=== PATIENT | male | born 1965 | race Caucasian/White ===

== ENCOUNTER 2020-09-05 10:41 | Inpatient (IN) | payer SELFPAY ==
[2020-09-05] VITALS (16 sets, daily range): BP systolic 127–154; BP diastolic 83–98; PULSE 61–92; RESP 13–18; TEMP 36.4–37.3; O2SAT 94–100; BMI 25.3
[2020-09-05] MEDS: SODIUM CHLORIDE 0.9% IV 1,000 ML 125 ML IV CONT (10:50)
--- NOTE | 2020-09-05 10:52 | ECG_ITS ---
Measurements Intervals [place] Rate: 76 P: 62 LA: 214 QRS: 31 QRSD: 77 T: 61 QT: 380 QTc: 428 Interpretive Statements SINUS RHYTHM WITH MARKED SINUS ARRHYTHMIA WITH FIRST DEGREE AV BLOCK ST ELEVATION IN SEPTAL LEADS- CONSIDER ACUTE INJURY PEAKED T WAVES- CONSIDER ISCHEMIA OR HYPERKALEMIA BASELINE ARTIFACT- I, II, III, AVR, AVL, AVF, V1-V3 ABNORMAL ECG Electronically Signed On 09-05-2020 12:25:59 CDT by David Abdi D.O.
--- NOTE | 2020-09-05 10:55 | PM.IMHP ---
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 911 was called to the scene his Coworkers. ECG in the field showed obvious acute anterior wall myocardial infarction. He is brought to the emergency room and then directly to the chemical laboratory scientist for emergency angiography in this setting. He describes no previous history of exertional chest pain symptomatology and no previous history of significant medical problems. Review of Systems Review of Systems: ROS unobtainable: Yes unobtainable due to medical condition Exam Const: General: in distress and uncomfortable Other: Well-developed well-nourished white male was a diaphoretic obviously in severe distress with chest pain HENMT: Mouth: Yes moist mucous membranes Eyes: Sclera: sclerae normal Pupils: Equal, round and reactive pupils present Neck: Neck: supple and no JVD Resp: Auscultation: clear to auscultation bilaterally Other: bibasilar pulmonary crackles Cardio: Rate: regular rate Rhythm: regular rhythm Other: no murmur S4 is evident PMI nondisplaced GI: GI Palp: Yes Soft to palpation Auscultation: normal bowel sounds Skin: General skin exam: normal color Neuro: Cognition (Neuro): normal cognition Extrem: General: normal to inspection Assessment and Plan Additional Plan 55-year-old man without previous cardiac history presents with chest pain and brought straight to the chemical laboratory scientist with obvious acute anterior wall infarction by ECG. Plans are for emergency angiography and revascularization. Heriberto Sullivan MD [facility]
--- NOTE | 2020-09-05 10:58 | WPDCARDPROC ---
Cardiac Cath Procedure Note Date of procedure:: 09/05/20 Performing physician:: Heriberto Sullivan MD Indication:: acute anterior wall myocardial infarction Brief clinical history:: this is a 55-year-old man without prior cardiac history presenting with chest pain and ECG evidence of acute anterior wall [place] Procedure Procedure performed:: emergency coronary angiography PCI (JULISSA) to the left anterior descending left ventriculography Sedation/Medication given:: no sedation Access site:: right femoral artery Estimated blood loss:: 15-20 cc Procedure note:: patient was brought to cardiac catheterization lab in the emergent setting as described above. The patient was in significant distress with chest pain and diaphoresis. The right femoral triangle was prepared in the usual fashion. Anesthesia was given with 1% lidocaine infiltrated locally. Using the modified Seldinger technique the femoral artery was punctured and a 6 Senegalese vascular sheath was placed. I then used a 6 [place]e CLS 3.5 guiding catheter to engage inject the left coronary artery for angiography. PCI was then recommended of the proximal LAD and carried out as detailed below. Prior to PCI the patient was systemically anticoagulated with bolus and infusion of Angiomax. He received 325 mg of aspirin and 180 mg of oral Brilinta. He was given aspirin in the emergency department but we elected to repeated as he vomited in the labor economist. Following PCI of the LAD as described above the patient had the right coronary injected using a 5 [place]e no torque right coronary catheter. I then used a 5 [place]e angled pigtail catheter to document left-sided hemodynamics and inject the left ventriculogram in the ROY projection. After this the sheath was sutured into position the patient was taken to the ICU for post NY/PCI recovery. He did not have any procedural complications and left the labor economist with no evidence of a groin hematoma. Findings:: Hemodynamics: Central aortic pressure was 122/80 left ventricle 122/10 end-diastolic pressure of 28. There was no systolic gradient on pullback across the aortic valve. Left ventricle: The LV is of normal size the anterior wall is akinetic the remainder of the LV contracts well the global ejection fraction appears to be about 35% with akinesis of the entire anterior wall. The left main coronary artery is nicely patent the left anterior descending appears to be a moderate caliber artery it is 100% occluded proximally with no antegrade flow. Circumflex is a large caliber vessel appears to be dominant to the posterior circulation. The proximal circumflex and the OM branches are free of significant disease. The left PDA has about 70-80% stenosis in the midportion. Right coronary artery is small in caliber non dominant and gives rise to a series of RV branches. The midportion of this small nondominant vessel has a focal 90% stenosis. Intervention: The LAD was was crossed using a 0.014 BMW guidewire which was advanced into the distal LAD. The target lesion was pre-dilated using a 3 x 15 mm emerge PTCA balloon. This restored [place] 3 flow in the LAD. Area of disease was moderate in length. I elected to deploy a 3.5 x 26 mm Orsiro drug-eluting stent at the site of the original occlusion which provided excellent angiographic appearance of the target lesion. Unfortunately the also resulted in the appearance of edge dissections both disc distally and proximally to stented area. I then deployed a 3.5 x 13 mm device of the same type overlapping the original stent covering the distal edge dissection and then a 3.5 x 15 mm device of the same type proximal to the stent and back to the ostium of the LAD. The original device was deployed at 10 atmospheres the the distal stent was deployed at 8 atmospheres in the proximal stent at 10 atmospheres giving that a 3.74 mm size. At the end of this the LAD we had an excellent angiographic appearance with no residual
--- NOTE | 2020-09-05 11:19 | WPDCNINT ---
Assessment and Plan Assessment and plan (1) ST elevation (STEMI) myocardial infarction involving left anterior descending coronary artery: Code(s): I21.02 - ST elevation (STEMI) myocardial infarction involving left anterior descending coronary artery Status: Acute Assessment and Plan: Patient presented with chest pain with diaphoresis, nausea, shortness of breath, still [place] was declared in the field and patient was taken straight to the cardiac catheterization -found to have occlusion the LAD, status post JULISSA x1 patient did developed edge dissections both proximal and distal to the original stent and 2 additional stents were inserted at the site of the dissections. EF according the science specialist was about 35% -patient has been started on aspirin, lisinopril, metoprolol, rosuvastatin, Brilinta (2) Cardiomyopathy: Code(s): I42.9 - Cardiomyopathy, unspecified Status: Acute Assessment and Plan: Cardiomyopathy with EF of 35% likely due to start heart secondary to STEMI -will obtain a echocardiogram in the morning -continue medications per Cardiology Additional Plan Discussed with patient updated with his condition and plan of care. I answered all questions. He is aware that he has to lay flat in bed time that she comes out and thereafter also. He seems to be very cooperative Code status: Full code Critical care time spent: 45 minutes This dictation may have been done utilizing a voice recognition system. Attempts have been made to correct errors. However, there may be uncorrected grammatical, spelling, and recognition errors present. Due to a high probability of clinically significant, life threatening deterioration, the patient required my highest level of preparedness to intervene emergently and I personally spent this critical care time directly and personally managing the patient. This critical care time included obtaining a history; examining the patient; pulse oximetry; ordering and review of studies; arranging urgent treatment with development of a management plan; evaluation of patient's response to treatment; frequent reassessment; and discussions with other providers. It was exclusive of separately billable procedures and treating other patients and teaching time. Please see Assessment and Plan section and the rest of the note for further information on patient assessment and treatment Animal Husbandman Consult Note Consult date: 09/05/20 Time Seen: 11:21 Reason for consult: ST-elevation [place] status post PTCA/PCI the LAD. EF of 35% HPI: Addi Blas is a 55 year old male with no past medical history or previous cardiac problems have experienced severe chest pain with diaphoresis this morning, EMS was called an EKG showed acute anterior wall NM, patient was brought to the ED and then directly taken to the shop laborer for emergency angiogram. Patient status post PTCA/PCI with JULISSA x1 to the LAD occlusion. Dissection is developed both proximally and distally the origin stent which required additional deployment of stents proximal and distal to the original stent. EF per Cardiology was about 35% which she thought is secondary to a stunned heart . Patient was transferred to the ICU for further management Patient seen and examined the ICU upon arrival, laying flat in bed, awake, alert, pleasant personality. Patient denies any medical history. He does not take any medications at home. Denies an, tobacco use or illicit drug use. States he drinks alcohol occasionally. Patient complains of mild chest discomfort on the left upper chest. Denies any diaphoresis, radiation the nausea, vomiting, abdominal pain. Denies any shortness of breath at this time. Patient is hemodynamically stable. 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
[2020-09-05 11:21] LABS: Hematocrit 47.1 % (42.0-52.0); Hemoglobin 16.3 g/dL (14.0-18.0); Mean Corpuscular HGB Conc 34.6 g/dl (32-36); Mean Corpuscular Hemoglobin 31.2 pg (26-34); Mean Corpuscular Volume 90.2 fl (80-100); Mean Platelet Volume 9.1 fl (7.4-10.4); Platelet Count Result 210 k/mm3 (150-375); Red Blood Count 5.22 M/mm3 (4.6-6.20); Red Cell Distribution Width 12.5 % (11.5-14.5); White Blood Count 13.8 K/mm3 (4.5-10.0)
[2020-09-05 11:33] LABS: Anion Gap 10 mmol/L (8-16); Blood Urea Nitrogen 18 mg/dL (9-20); Calcium 8.7 mg/dL (8.4-10.2); Carbon Dioxide 21 mmol/L (22-30); Chloride 103 mmol/L (98-107); Cholesterol 258 mg/dL (0-200); Estimated Glomerular Filt Rate > 60; Glucose 131 mg/dL (75-110); HDL Direct 58 mg/dL; Potassium 5.3 mmol/L (3.4-5.0); Sodium 134 mmol/L (137-145); Triglycerides 134 mg/dL (<150)
[2020-09-05 11:43] LABS: LDL Cholesterol Direct 137 mg/dL
[2020-09-05 11:49] LABS: Troponin I 0.484 ng/mL (0.000-0.034)
[2020-09-05] MEDS: FUROSEMIDE INJ 40 MG/4 ML VIAL IV PUSH (12:32)
--- NOTE | 2020-09-05 12:41 | ADMGEN ---
This patient, Addi Blas, was admitted to Intensive Care Unit-6. Patient/family oriented to hospital policies and general routines including ID bracelet, bed and alarms, visiting hours, pain management, procedures, bathroom and other care routines, personal items, smoking policy, room service/diet, and visiting hours. Information on how to activate the Rapid Response Team has been discussed. Patient/Family are encouraged to report perceived risks to care and to ask questions if they do not understand what they are told or what they should do.
--- NOTE | 2020-09-05 12:52 | PC.NURSE ---
Cardiopulmonary Rehab Services flyer was given to patient in his cardiac admission folder.
[2020-09-05] MEDS: NEOMYCIN/POLYMYXIN/BACITRACIN OINTMENT PACKET 1 PACKET (15:20)
[2020-09-05 17:23] LABS: Hematocrit 50.9 % (42.0-52.0); Hemoglobin 17.5 g/dL (14.0-18.0); Mean Corpuscular HGB Conc 34.4 g/dl (32-36); Mean Corpuscular Hemoglobin 31.6 pg (26-34); Mean Corpuscular Volume 91.9 fl (80-100); Mean Platelet Volume 9.3 fl (7.4-10.4); Platelet Count Result 205 k/mm3 (150-375); Red Blood Count 5.54 M/mm3 (4.6-6.20); Red Cell Distribution Width 12.8 % (11.5-14.5)
[2020-09-05] MEDS: METOPROLOL TARTRATE 25 MG TABLET PO (21:15)
[2020-09-05] MEDS: TICAGRELOR 90 MG TABLET PO (21:15)
[2020-09-06] VITALS (14 sets, daily range): BP systolic 102–135; BP diastolic 55–89; PULSE 51–82; RESP 12–20; TEMP 36.1–36.8; O2SAT 95–100
--- NOTE | 2020-09-06 | ECHO_ITS ---
Patient Info Name: Addi Blas Age: 55 years : 1965 Gender: Male Ht: 73 in Wt: 180 lbs BSA: 2.05 m2 HR: 53 bpm BP: 108 / 69 mmHg Heart Rhythm: Bradycardia Technical Quality: Fair Exam Date: 09/06/2020 1:21 PM Exam Location: [facility] Pulmonary Patient Status: Inpatient Admit Date: 09/05/2020 Staff Ordering Physician: Rolando Nagel MD Coater Helper: NEIL Attending Provider: Heriberto Sullivan MD Exam Type: CA echo dop color flow w con Study Info Complete two-dimensional, color flow and Doppler transthoracic echocardiogram is performed with contrast to opacify the left ventricle and to improve the deliniation of the left ventricle endocardial borders. Contrast/Agitated Saline Contrast/Ag. Saline: Definity Amount: 4.00 ml Summary 1. Normal LV size, mild LVH; mild LV systolic dysfunction with segmental wall motion abnormality-hypokinetic anteroseptal segment; ejection fraction approximately 40-45%. Grade 2 diastolic dysfunction. Mild left atrial enlargement. Normal mitral valve structure, trace MR. Mild aortic valve sclerosis, no stenosis. Mild TR, RVSP 23 mmHg. Sinus bradycardia. Left Ventricle Left ventricular chamber dimension is normal. Left ventricular systolic function is moderately reduced, estimated at 40-45%. There is mildly increased left ventricular wall thickness. The left ventricular diastolic function is grade II diastolic dysfunction. Right Ventricle Right ventricular chamber dimension is normal. Right ventricular systolic function is normal. Left Atria Left atrial chamber dimension is mildly enlarged. Right Atria Right atrial chamber dimension is normal. Aortic Valve There is mild aortic valve sclerosis. There is no aortic valve stenosis. Pulmonic Valve The pulmonic valve is normal. Mitral Valve The mitral valve has normal leaflets. There is trace mitral valve regurgitation. Tricuspid Valve The tricuspid valve leaflets are normal. There is mild tricuspid valve regurgitation. Pericardium/Pleural The pericardium appears normal. Inferior Vena Cava Normal inferior vena cava with >50% collapse upon inspiration consistent with normal right atrial pressure, 8 mmHg. Aorta The aortic root size at the sinus of Valsalva is normal. Tricuspid Valve Name Value Normal Estimated PAP/RSVP RA Pressure 8 mmHg <=5 Report Signatures
[2020-09-06 04:56] LABS: Basophils Percent Auto 0.1 % (0.2-1.2); Hematocrit 48.5 % (42.0-52.0); Hemoglobin 16.6 g/dL (14.0-18.0); Immature Granulocyte Absolute 0.03 K/mm3 (0.00-0.031); Immature Granulocyte Percent A 0.3 % (0-0.5); Lymphocytes Absolute Auto 0.79 K/mm3 (0.9-3.2); Lymphocytes Percent Auto 7.1 % (18.3-44.2); Mean Corpuscular HGB Conc 34.2 g/dl (32-36); Mean Corpuscular Volume 90.7 fl (80-100); Mean Platelet Volume 9.7 fl (7.4-10.4); Monocytes Absolute Auto 1.2 K/mm3 (0.1-0.6); Monocytes Percent Auto 10.4 % (2.6-8.5); Neutrophils Absolute Auto 9.2 K/mm3 (1.3-6.7); Neutrophils Percent Auto 82.1 % (45.5-73.1); Platelet Count Result 230 k/mm3 (150-375); Red Blood Count 5.35 M/mm3 (4.6-6.20); Red Cell Distribution Width 12.9 % (11.5-14.5); White Blood Count 11.2 K/mm3 (4.5-10.0)
--- NOTE | 2020-09-06 05:11 | ECG_ITS ---
Measurements Intervals [place] Rate: 58 P: -22 NE: 188 QRS: 73 QRSD: 90 T: 95 QT: 461 QTc: 454 Interpretive Statements SINUS OR ECTOPIC ATRIAL BRADYCARDIA ANTEROSEPTAL INFARCT- PROBABLY RECENT ABNORMAL ECG Electronically Signed On 09-06-2020 14:54:55 CDT by David Abdi D.O.
[2020-09-06 05:18] LABS: Anion Gap 6 mmol/L (8-16); Blood Urea Nitrogen 15 mg/dL (9-20); Calcium 9.3 mg/dL (8.4-10.2); Carbon Dioxide 27 mmol/L (22-30); Chloride 107 mmol/L (98-107); Estimated CRCL calculation 90 ml/min; Estimated Glomerular Filt Rate > 60; Glucose 119 mg/dL (75-110); Magnesium 2.3 mg/dL (1.6-2.3); Phosphorus 3.4 mg/dL (2.5-4.5); Potassium 4.1 mmol/L (3.4-5.0); Sodium 140 mmol/L (137-145)
[2020-09-06] MEDS: METOPROLOL TARTRATE 25 MG TABLET PO (08:29)
[2020-09-06] MEDS: TICAGRELOR 90 MG TABLET PO ×2 (08:29→21:15)
[2020-09-06] MEDS: ASPIRIN 81 MG CHEWABLE TABLET PO (08:30)
[2020-09-06] MEDS: lisinopriL 5 MG TABLET PO (08:30)
[2020-09-06] MEDS: ROSUVASTATIN 10 MG TABLET 20 MG PO (08:30)
--- NOTE | 2020-09-06 11:15 | PM.PNCARD ---
Progress Note: A&P Assessment and Plan (1) ST elevation (STEMI) myocardial infarction involving left anterior descending coronary artery: Code(s): I21.02 - ST elevation (STEMI) myocardial infarction involving left anterior descending coronary artery Status: Acute Assessment and Plan: Patient presented with anterior ST-elevation [place], status post PCI/ JULISSA x3 LAD. Guideline directed post ND/post PCI medical treatment- - dual antiplatelet therapy with low-dose aspirin; and ticagrelor - metoprolol tartrate changed to metoprolol succinate; lisinopril changed to losartan. - change statin to high-intensity statin, atorvastatin 80 mg p.o. q.h.s. - Transferred to telemetry - Cardiac rehab after discharge (2) Cardiomyopathy: Code(s): I42.9 - Cardiomyopathy, unspecified Status: Acute Assessment and Plan: will repeat echocardiogram with Doppler to reassess LVEF. Subjective Date/time seen: 09/06/20 11:15 Date of Service: 09/06/2020 Interval history: Patient has been feeling better, recurrent chest pain or shortness of breath. On telemetry, patient is in sinus rhythm. Exam Narrative: Exam Narrative: PHYSICAL EXAMINATION: GENERAL: Alert, oriented, no acute distress MENTAL STATUS: affect appropriate to mood EYES: Extraocular movements intact, no pallor EARS: External ears appear normal, hearing grossly normal NOSE: Normal and patent, no discharge MOUTH: Mucous membranes moist, tongue normal NECK: Supple, no JVD CHEST: Good respiratory effort, clear to auscultation HEART: Normal rate, regular rhythm, normal S1 and S2, no audible murmurs ABDOMEN: Soft, nontender NEUROLOGICAL: Alert, oriented, normal speech, no gross motor deficits MUSCULOSKELETAL: No major deformity, no amputation EXTREMITIES: No pedal edema, no clubbing, no cyanosis ; right groin site unremarkable SKIN: no rash on the exposed area, no cyanosis PSYCHIATRIC: Normal mood, appropriate affect Objective Data Vital Signs Vital Signs: Vital Signs - 24 hr 09/05/20 12:00 09/05/20 14:00 09/05/20 15:20 Temperature 36.4 C Pulse Rate 76 77 77 Pulse Rate [Right Pedal (Dorsalis Pedis)] 77 Respiratory Rate 18 13 15 Blood Pressure 154/93 H 135/89 143/88 H Pulse Oximetry 97 98 99 09/05/20 15:45 09/05/20 15:57 09/05/20 16:00 Temperature Pulse Rate 74 71 81 Pulse Rate [Right Pedal (Dorsalis Pedis)] 71 81 Respiratory Rate 16 13 14 Blood Pressure 139/94 H 128/83 140/94 H Pulse Oximetry 99 98 98 09/05/20 16:15 09/05/20 16:45 09/05/20 17:00 Temperature Pulse Rate 71 80 92 Pulse Rate [Right Pedal (Dorsalis Pedis)] Respiratory Rate 15 15 15 Blood Pressure 137/91 H 138/91 H 139/88 Pulse Oximetry 99 100 98 09/05/20 17:15 09/05/20 17:45 09/05/20 18:00 Temperature Pulse Rate 82 72 76 Pulse Rate [Right Pedal (Dorsalis Pedis)] 82 72 Respiratory Rate 15 15 15 Blood Pressure 145/87 H 144/87 H 141/89 H Pulse Oximetry 97 95 96 09/05/20 20:00 09/05/20 21:15 09/05/20 22:00 Temperature 37.3 C Pulse Rate 64 74 61 Pulse Rate [Right Pedal (Dorsalis Pedis)] Respiratory Rate 18 18 Blood Pressure 135/84 149/98 H Pulse Oximetry 95 94 09/06/20 00:00 09/06/20 02:00 09/06/20 04:00 Temperature 36.7 C 36.6 C Pulse Rate 58 L 58 L 59 L Pulse Rate [Right Pedal (Dorsalis Pedis)] Respiratory Rate 20 12 14 Blood Pressure 125/86 130/87 128/88 Pulse Oximetry 96 95 95 09/06/20 06:00 09/06/20 08:00 09/06/20 08:29 Temperature 36.6 C Pulse Rate 55 L 58 L 59 L Pulse Rate [Right Pedal (Dorsalis Pedis)] Respiratory Rate 14 13 Blood Pressure 135/87 133/89 Pulse Oximetry 96 96 09/06/20 10:00 Temperature Pulse Rate 68 Pulse Rate [Right Pedal (Dorsalis Pedis)] Respiratory Rate 17 Blood Pressure 125/79 Pulse Oximetry 97 Intake/Output Intake/Output: Intake & Output 09/03/20 09/04/20 09/05/20 09/06/20 23:59 23:59 23:59 23:59 Intake Total 1440 680 Output Total 222
--- NOTE | 2020-09-06 11:42 | PC.NURSE ---
This patient, Addi Blas, was transferred to [facility] on 09/06/20 at 1142. Personal belongings sent with patient. Report given to CHIP Salas. Appropriate documentation sent with patient.
--- NOTE | 2020-09-06 11:49 | WPDINTPN ---
Progress Note: A&P Assessment and Plan (1) ST elevation (STEMI) myocardial infarction involving left anterior descending coronary artery: Code(s): I21.02 - ST elevation (STEMI) myocardial infarction involving left anterior descending coronary artery Status: Acute Assessment and Plan: Patient presented with chest pain with diaphoresis, nausea, shortness of breath, still [place] was declared in the field and patient was taken straight to the cardiac catheterization -found to have occlusion the LAD, status post JULISSA x1 patient did developed edge dissections both proximal and distal to the original stent and 2 additional stents were inserted at the site of the dissections. EF according the sheet metal apprentice was about 35% -patient has been started on aspirin, lisinopril, metoprolol, rosuvastatin, Brilinta (2) Cardiomyopathy: Code(s): I42.9 - Cardiomyopathy, unspecified Status: Acute Assessment and Plan: Cardiomyopathy with EF of 35% likely due to start heart secondary to STEMI -will obtain a echocardiogram -continue medications per Cardiology Additional Plan Discussed with patient updated with his condition and plan of care. I answered all questions. Code status: Full code Critical care time spent: 31 minutes This dictation may have been done utilizing a voice recognition system. Attempts have been made to correct errors. However, there may be uncorrected grammatical, spelling, and recognition errors present. Due to a high probability of clinically significant, life threatening deterioration, the patient required my highest level of preparedness to intervene emergently and I personally spent this critical care time directly and personally managing the patient. This critical care time included obtaining a history; examining the patient; pulse oximetry; ordering and review of studies; arranging urgent treatment with development of a management plan; evaluation of patient's response to treatment; frequent reassessment; and discussions with other providers. It was exclusive of separately billable procedures and treating other patients and teaching time. Please see Assessment and Plan section and the rest of the note for further information on patient assessment and treatment Subjective Date/time seen: 09/06/20 11:49 Interval history: Reason for consult: ST-elevation [place] status post PTCA/PCI the LAD. EF of 35% Pt seen and examined. states he is doing well. Denies any chest pain, SOB, N/V. No arrhythmias noted on telemetry. in sinus rhythm. hemodynamically stable. Review of Systems Review of Systems: All systems reviewed & are unremarkable except as noted in HPI and below Exam Const: General: comfortable and no acute distress HENMT: Mouth: Yes moist mucous membranes Eyes: Sclera: sclerae normal Neck: Neck: supple Thyroid: thyroid normal Lymphatic: lymphadenopathy not noted Resp: Effort & Inspection: normal respiratory effort Auscultation: clear to auscultation bilaterally Cardio: Rate: regular rate Rhythm: regular rhythm GI: Inspection: non-distended GI Palp: Yes Soft to palpation and No Tenderness to palpation present (GI) Auscultation: normal bowel sounds : Other: Deferred Skin: General skin exam: normal color and no rashes or lesions noted Neuro: Other: Patient is awake, alert, answers to questions appropriately, nonfocal Extrem: General: normal to inspection, no edema and no pedal edema Other: Palpable pedal pulses RIght groin site without hematoma and or ecchymosis Psych: Mental Status: mental status grossly normal Affect: normal affect Objective Data Vital Signs Vital Signs: Vital Signs - 24 hr 09/05/20 12:00 09/05/20 14:00 09/05/20 15:20 Temperature 97.6 F Pulse Rate 76 77 77 Pulse Rate [Right Pedal (Dorsalis Pedis)] 77 Respiratory Rate 18 13 15 Blood Pressure 154/93 H 135/89 143/88 H Pulse Oximetry 97 98 99 09/05/20 15:45 09/05/20 15:57 09/05/20 16:
[2020-09-06] MEDS: ATORVASTATIN 40 MG TABLET 80 MG PO (21:14)
[2020-09-07] VITALS (8 sets, daily range): BP systolic 111–123; BP diastolic 65–92; PULSE 56–84; RESP 18; TEMP 36–36.2; O2SAT 100
[2020-09-07] MEDS: LOSARTAN POTASSIUM 25 MG TABLET PO (08:22)
[2020-09-07] MEDS: METOPROLOL SUCCINATE EXT REL 25 MG TABCR PO (08:22)
[2020-09-07] MEDS: ASPIRIN 81 MG CHEWABLE TABLET PO (08:22)
[2020-09-07] MEDS: TICAGRELOR 90 MG TABLET PO (08:22)
--- NOTE | 2020-09-07 10:00 | PM.DS ---
DS: Admitting Diagnosis Admitting Diagnosis Admitting Diagnosis: Anterior ST-elevation MD DS: Discharge Diagnosis Discharge Diagnosis (1) ST elevation (STEMI) myocardial infarction involving left anterior descending coronary artery: Code(s): I21.02 - ST elevation (STEMI) myocardial infarction involving left anterior descending coronary artery Status: Acute Assessment and Plan: 55-year-old male with no known prior cardiac history presented with anterior ST-elevation MD. He underwent primary PCI/ JULISSA x3 of LAD. His post procedure hospital course remained mostly uneventful. His peak troponin was 25.7. LDL was 137. Echo showed LVEF 40-45% with anteroseptal hypokinesis. On the day of discharge, patient was chest pain-free and eager to go home. Guideline directed post MD/post PCI medical treatment- - dual antiplatelet therapy with low-dose aspirin; and ticagrelor; metoprolol tartrate, losartan, high-dose statin 80 mg p.o. q.h.s. -cardiac rehab as an outpatient (2) Cardiomyopathy: Code(s): I42.9 - Cardiomyopathy, unspecified Status: Acute Assessment and Plan: Repeat echocardiogram showed LVEF 40-45% with hypokinesis in the anteroseptal segment. Optimal tolerated medical treatment. Risk factor modification. DS: Summary Hospital Course Hospital Course: 55-year-old male with no known prior cardiac history presented with anterior ST-elevation MD. He underwent primary PCI/ JULISSA x3 of LAD. His post procedure hospital course remained mostly uneventful. His peak troponin was 25.7. LDL was 137. Echo showed LVEF 40-45% with anteroseptal hypokinesis. On the day of discharge, patient was chest pain-free and eager to go home. Time Spent with Patient Time attestation: Total time spent providing and/or coordinating discharge services: 39 minutes Exam Narrative: Exam Narrative: PHYSICAL EXAMINATION: GENERAL: Alert, oriented, no acute distress MENTAL STATUS: affect appropriate to mood EYES: Extraocular movements intact, no pallor EARS: External ears appear normal, hearing grossly normal NOSE: Normal and patent, no discharge MOUTH: Mucous membranes moist, tongue normal NECK: Supple, no JVD CHEST: Good respiratory effort, clear to auscultation HEART: Normal rate, regular rhythm, normal S1 and S2, no audible murmurs ABDOMEN: Soft, nontender NEUROLOGICAL: Alert, oriented, normal speech, no gross motor deficits MUSCULOSKELETAL: No major deformity, no amputation EXTREMITIES: No pedal edema, no clubbing, no cyanosis ; right groin site unremarkable SKIN: no rash on the exposed area, no cyanosis PSYCHIATRIC: Normal mood, appropriate affect Discharge Plan Discharge Attending physician on discharge: Rolando Nagel Discharging Clinician: Rolando Nagel Patient Disposition: Home, Self-Care Activity: no straining Diet: heart healthy, low cholesterol and low fat Discharge Instructions: [facility] [address] [place], [place] [id number] DISCHARGE INSTRUCTIONS - POST CARDIAC CATH Activity restrictions 1. No driving for 24 hours. 2. No lifting, pushing or pulling more than 10 pounds for 1 week. 3. No strenuous exercise or activity (including sexual activity) for 1 week. 4. May shower but no tub baths or swimming pool for 1 week. Avoid commercial hot tubs. They are too hot. Wound care 1. May remove gauze dressing tiffanie
--- NOTE | 2020-09-07 11:14 | PC.NURSE ---
Pt discharged at this time. Discharge instructions given, no questions at this time. Verbalizes understanding.
== END 2020-09-07 11:16 | disposition home or self-care (01) | DRG 174 ==
LOC: ANHCATHLAB 10:46 → ANHICU 10:48 → ANHIMU 09-06 19:40 → ANHICU 09-10 14:23 → ANHIMU 09-10 14:23
PROVIDERS: Internal Medicine; Admitting Provider Specialist; Visit Provider Internal Medicine Cardiovascular Disease
PROC: 4A023N7 Measurement of Cardiac Sampling and Pressure, Left Heart, Percutaneous Approach (ICD-10-PCS; CPT 93452; principal; 2020-09-05 09:50)
PROC: 027036Z Dilation of Coronary Artery, One Artery with Three Drug-eluting Intraluminal Devices, Percutaneous Approach (ICD-10-PCS; 2020-09-05 09:50)
DX: I21.02 ST elevation (STEMI) myocardial infarction involving left anterior descending coronary artery (principal); I25.10 Atherosclerotic heart disease of native coronary artery without angina pectoris; I42.9 Cardiomyopathy, unspecified; R00.1 Bradycardia, unspecified; I25.42 Coronary artery dissection
CPT/HCPCS: 36415; 80048; 80061; 83735; 84100; 84484; 85025; 85027; 93005; 93458; A9270; C1725; C1769; C1874; C1887; C1894; C8929; C9606; J0583; J1644; J1940; J2405; J7030; Q9957